=== PATIENT | female | born 1975 | race Caucasian/White ===

== ENCOUNTER 2020-04-24 20:49 | Emergency (ER) | payer OTHER ==
[~2020-04-24] VITALS: Ht 154.9 cm; Wt 79.4 kg
[2020-04-24] MEDS ORDERED: MOTION SICKNESS25 M1 PO (20:57)
[2020-04-24] MEDS ORDERED: ONDANSETRON ODT8 MG PO (21:47)
[2020-04-24] MEDS ORDERED: VALIUM2 MG PO (21:47)
[2020-04-24 22:02] VITALS: BP 114/83
== END 2020-04-24 22:10 | disposition home or self-care (01) ==
LOC: ER 20:49
DX: H81.10 Benign paroxysmal vertigo, unspecified ear (principal); R11.2 Nausea with vomiting, unspecified; Z79.899 Other long term (current) drug therapy

== ENCOUNTER 2020-10-17 17:06 | Emergency (ER) | payer OTHER ==
[~2020-10-17] VITALS: Ht 152.4 cm; Wt 81.7 kg
[~2020-10-17 17:06] MED LIST: MOTION SICKNESS25 M1 PO; ONDANSETRON ODT8 MG PO; VALIUM2 MG PO
[2020-10-17 17:36] LABS: URINE BILIRUBIN NEGATIVE (Negative); URINE BLOOD NEGATIVE (Negative); URINE CLARITY CLEAR; URINE COLOR YELLOW; URINE GLUCOSE-RANDOM* NEGATIVE (Negative); URINE KETONES TRACE (Negative); URINE LEUKOCYTES-REFLEX NEGATIVE (Negative); URINE NITRITE-REFLEX NEGATIVE (Negative); URINE PROTEIN (DIPSTICK) NEGATIVE (Negative); URINE SPECIFIC GRAVITY 1.015 (1.005-1.035); URINE UROBILINOGEN 0.2 E.U./dl (0.2-1.0)
[2020-10-17 17:58] LABS: ABSOLUTE NEUTROPHILS 9.2 thou/uL (1.4-8.2); BASOPHILS 0.5 % (0.0-2.0); EOSINOPHILS 0.4 % (0.0-3.0); HEMATOCRIT 40.6 % (37.0-47.0); HEMOGLOBIN 13.2 gm/dL (12.0-15.0); LYMPHOCYTES 18.7 % (24.0-44.0); MCH 28.2 pg (26.0-34.0); MCHC 32.6 g/dL (28.0-37.0); MCV 86.6 fL (80.0-100.0); PLATELET COUNT 366 thou/uL (150-400); POLYS 72.4 % (36.0-66.0); RBC 4.69 mil/uL (4.20-5.00); RDW 14.5 % (10.5-14.5); WBC 12.6 thou/uL (4.0-11.0)
[2020-10-17 18:15] LABS: ALBUMIN 3.6 g/dL (3.4-5.0); CREATININE 0.7 mg/dL (0.6-1.0); POTASSIUM 3.9 mmol/L (3.5-5.1); TOTAL BILIRUBIN 0.3 mg/dL (0.2-1.0); TOTAL PROTEIN 7.6 g/dL (6.4-8.2)
[2020-10-17 18:16] LABS: CALCIUM 9.4 mg/dL (8.5-10.1)
[2020-10-17] MEDS ORDERED: PEPCID20 MG PO (18:41)
[2020-10-17] MEDS ORDERED: PROTONIX40 M2 PO (19:37)
[2020-10-17] MEDS ORDERED: PROAIR HFA8.5 GM INH (19:37)
[2020-10-17] MEDS ORDERED: ZOFRAN ODT4 MG PO (19:41)
[2020-10-17 20:00] VITALS: BP 110/62
--- NOTE | 2020-10-18 08:54 | EKG ---
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
== END 2020-10-17 20:00 | disposition home or self-care (01) ==
LOC: ER 17:06
PROVIDERS: Physician Assistant
DX: R10.13 Epigastric pain (principal); R11.2 Nausea with vomiting, unspecified; K21.9 Gastro-esophageal reflux disease without esophagitis; Z79.899 Other long term (current) drug therapy

== ENCOUNTER 2021-03-08 15:05 | Emergency (ER) | payer OTHER ==
[~2021-03-08] VITALS: Ht 152.4 cm; Wt 81.7 kg
[~2021-03-08 15:05] MED LIST changes: +PEPCID20 MG PO; +PROAIR HFA8.5 GM INH; +PROTONIX40 M2 PO; +ZOFRAN ODT4 MG PO
[2021-03-08] MEDS ORDERED: ERYTHROMYCIN E3.5 G2 OPHTHALMIC (16:06)
[2021-03-08] MEDS ORDERED: HYDROCODON-ACE1 EAC7 PO (16:06)
[2021-03-08 16:40] VITALS: BP 133/85
== END 2021-03-08 18:02 | disposition home or self-care (01) ==
LOC: ER 15:05
DX: S05.01XA Injury of conjunctiva and corneal abrasion without foreign body, right eye, initial encounter (principal); H10.33 Unspecified acute conjunctivitis, bilateral; A48.8 Other specified bacterial diseases; Z79.899 Other long term (current) drug therapy; X58.XXXA Exposure to other specified factors, initial encounter; Y93.89 Activity, other specified; Y92.89 Other specified places as the place of occurrence of the external cause; Y99.9 Unspecified external cause status